=== PATIENT | female | born 1950 | race Caucasian/White ===

== ENCOUNTER 2018-06-13 08:48 | Inpatient (IN) | payer OTHER, MEDICARE ==
[2018-06-13] VITALS (7 sets, daily range): BP systolic 142–172; BP diastolic 70–88
[~2018-06-13] VITALS: Ht 162.5 cm; Wt 67.1 kg
--- NOTE | ~2018-06-13 | EKG ---
[place], [place] ELECTROCARDIOGRAM REPORT NAME: CAROLE BHATIA UNIT #: [id number] ROOM: 401 DOCTOR: ANANDA DRAFT REPORT BIRTHDATE: [birth year] [facility] Test Date: 2018-06-13 Test Time: 08:59:39 Pat Name: CAROLE BHATIA Department: Room: Gender: F Slunk Skin Curer: : 1950 Requested By: LLOYD HARO Order Number: [id number] Reading MD: Richard George MD Measurements Intervals [place] Rate: 70 P: 47 MA: 182 QRS: -26 QRSD: 101 T: 34 QT: 425 QTc: 459 Interpretive Statements Sinus rhythm Inferior infarct, old No previous ECG available for comparison Electronically Signed On 06-13-2018 8:28:28 PDT by Richard George MD CM:EKGRPT:ELECTROCARDIOGRAM REPORT [id number] LLOYD GARCIA DRAFT REPORT LLOYD HARO DO
--- NOTE | ~2018-06-13 | EKG ---
[place], [place] ELECTROCARDIOGRAM REPORT NAME: CAROLE BHATIA UNIT #: [id number] ROOM: [facility] DOCTOR: ANANDA DRAFT REPORT BIRTHDATE: [birth year] [facility] Test Date: 2018-06-13 Test Time: 12:23:28 Pat Name: CAROLE BHATIA Department: Room: Gender: F Specialized Language Instructor: GUSTAVO : 1950 Requested By: LLOYD HARO Order Number: [id number] Reading MD: Richard George MD Measurements Intervals [place] Rate: 64 P: 36 CT: 162 QRS: -22 QRSD: 106 T: 22 QT: 440 QTc: 454 Interpretive Statements Sinus rhythm Borderline left axis deviation Compared to ECG 06/13/2018 08:59:39 No significant change Electronically Signed On 06-13-2018 10:18:54 PDT by Richard George MD CM:EKGRPT:ELECTROCARDIOGRAM REPORT [id number] LLOYD GARCIA DRAFT REPORT LLOYD HARO DO
--- NOTE | ~2018-06-13 | PR ---
[place], [place] PROGRESS NOTE NAME: CAROLE BHATIA [facility] #: [id number] UNIT #: [id number] ROOM: 401 DOCTOR: JAY CABRERA MD BIRTHDATE: [birth year] DOS: 06/14/2018 The patient was seen today at the Cardiology Department for Cardiology followup just prior to her stress test. She is a 67-year-old woman who presented with indigestion and atypical chest pain. Despite several hours of chest pain and nausea, her troponin levels have remained normal and she has shown no acute EKG changes. Overnight, her symptoms have resolved and she feels well today. In the hospital, she has had multiple blood pressure readings that have been high, even though she has not had a diagnosed history of hypertension. PHYSICAL EXAMINATION: VITAL SIGNS: Today, her pulse is 80 and regular, blood pressure is 147/63. She is afebrile. She weighs 67 kg and has a body mass index of 25.4. NECK: Supple. She has no jugular distention. Carotids are full. LUNGS: Respirations are unlabored. Chest is clear. HEART: Has a regular rhythm and S4 gallop, but no S3. ABDOMEN: Soft and normally active. EXTREMITIES: Showed no edema. The patient's symptoms have resolved overnight and she shows no signs of an acute coronary syndrome. IMPRESSION: 1. Atypical chest pain, most likely not cardiac in origin. 2. Dyspepsia. 3. Probable hypertension. PLAN: We will proceed with an exercise myocardial perfusion study today. Further recommendations depend upon the results of the stress test. I thank the hospitalist physicians for asking our advice regarding her care. JAY CABRERA MD CM:PNTRANS [id number] JAY CABRERA MD 06/14/182300 interface
--- NOTE | ~2018-06-13 | EKG ---
[place], [place] ELECTROCARDIOGRAM REPORT NAME: CAROLE BHATIA UNIT #: [id number] ROOM: [facility] DOCTOR: ANANDA DRAFT REPORT BIRTHDATE: [birth year] [facility] Test Date: 2018-06-13 Test Time: 14:34:38 Pat Name: CAROLE BHATIA Department: Room: Gender: F Counter Former: JIMMY : 1950 Requested By: LLOYD HARO Order Number: [id number] Reading MD: Richard George MD Measurements Intervals [place] Rate: 72 P: 41 [place]: 163 QRS: -30 QRSD: 101 T: 11 QT: 434 QTc: 476 Interpretive Statements Sinus rhythm RSR' in V1 or V2, probably normal variant Inferior infarct, old Baseline wander in lead(s) I,II,aVR,aVL Compared to ECG 06/13/2018 12:23:28 Nonspecific T-wave abnormalities in the anterolateral leads are more pronounced Electronically Signed On 06-13-2018 20:41:23 PDT by Richard George MD CM:EKGRPT:ELECTROCARDIOGRAM REPORT [id number] [id number] LLOYD GARCIA DRAFT REPORT LLOYD HARO DO
[2018-06-13] MEDS ORDERED: ROPINIROLE HYDRO2 M2 PO (08:58)
[2018-06-13] MEDS ORDERED: Synthroid,Levo88 MCG PO (08:59)
[2018-06-13] MEDS ORDERED: DULOXETINE HCL60 MG PO (08:59)
[2018-06-13] MEDS ORDERED: PREMARIN0.625 M1 PO (08:59)
[2018-06-13] MEDS ORDERED: TRAMADOL HCL50 MG PO (09:00)
[2018-06-13 09:09] LABS: BASO % 0.6 % (0.0-1.0); EOS # 0.3 10*3/uL (0.0-0.4); EOS % 3.8 % (1.0-4.0); HEMATOCRIT 42.5 % (37.0-47.0); HEMOGLOBIN 14.3 g/dl (12.0-16.0); LYMPH # 1.5 10*3/uL (1.3-4.4); LYMPH % 21.5 % (27.0-41.0); MEAN CORPUSCULAR HGB 31.6 pg (27.0-31.0); MEAN CORPUSCULAR HGB CONC 33.6 g/dl (33.0-37.0); MEAN PLATELET VOLUME 8.4 fl (9.6-12.3); MONO # 0.6 10*3/uL (0.1-1.0); MONO % 8.2 % (3.0-9.0); NEUT # 4.7 10*3/uL (2.3-7.9); NEUT % 65.6 % (47.0-73.0); PLATELET COUNT AUTOMATED 159 10*3/uL (130-400); RED BLOOD COUNT 4.52 10*6/uL (4.10-5.10); RED CELL DISTRI WIDTH 12.8 % (0-14.5); WHITE BLOOD COUNT 7.2 10*3/uL (4.8-10.8)
[2018-06-13 09:19] LABS: ACT PARTIAL THROMBO TIME 25.1 SECONDS (20.8-31.5); INTERNATIONAL NORM RATIO 0.9 (2.0-3.5)
[2018-06-13 09:25] LABS: ALBUMIN 3.5 gm/dl (3.1-4.5); ALKALINE PHOSPHATASE 81 U/L (45-117); BUN 20 mg/dl (7-24); CHLORIDE 108 mmol/L (98-107); CREATININE 0.85 mg/dL (0.55-1.02); LIPASE 246 U/L (73-393); POTASSIUM 3.9 mmol/L (3.5-5.1); SGOT/AST 22 IU/L (3-35); SGPT/ALT 24 U/L (12-78); SODIUM 142 mmol/L (136-145); TOTAL PROTEIN 6.6 gm/dL (6.4-8.2)
[2018-06-13 09:26] LABS: TROPONIN I < 0.015 ng/ml (<0.045)
[2018-06-14] VITALS: BP 152/75
[2018-06-14 06:15] LABS: BASO % 0.5 % (0.0-1.0); EOS # 0.2 10*3/uL (0.0-0.4); EOS % 3.4 % (1.0-4.0); HEMATOCRIT 43.8 % (37.0-47.0); HEMOGLOBIN 14.4 g/dl (12.0-16.0); LYMPH # 1.3 10*3/uL (1.3-4.4); MEAN CELL VOLUME 95.2 fl (81.0-99.0); MEAN CORPUSCULAR HGB 31.3 pg (27.0-31.0); MEAN CORPUSCULAR HGB CONC 32.9 g/dl (33.0-37.0); MEAN PLATELET VOLUME 8.5 fl (9.6-12.3); MONO # 0.6 10*3/uL (0.1-1.0); MONO % 10.1 % (3.0-9.0); NEUT # 3.5 10*3/uL (2.3-7.9); NEUT % 62.8 % (47.0-73.0); PLATELET COUNT AUTOMATED 156 10*3/uL (130-400); WHITE BLOOD COUNT 5.6 10*3/uL (4.8-10.8)
[2018-06-14 06:32] LABS: ALBUMIN 3.3 gm/dl (3.1-4.5); BUN 15 mg/dl (7-24); CHLORIDE 109 mmol/L (98-107); POTASSIUM 3.9 mmol/L (3.5-5.1); SODIUM 143 mmol/L (136-145)
[2018-06-14 06:42] LABS: ALKALINE PHOSPHATASE 75 U/L (45-117); CHOLESTEROL 206 mg/dL (<200); CREATININE 0.87 mg/dL (0.55-1.02); FREE T4 0.83 ng/dl (0.76-1.46); HDL CHOLESTEROL 61 mg/dl (40-60); LDL CHOLESTEROL 118 mg/dL (9-159); PHOSPHOROUS 3.3 mg/dL (2.5-4.9); SGOT/AST 18 IU/L (3-35); SGPT/ALT 22 U/L (12-78); TOTAL PROTEIN 6.5 gm/dL (6.4-8.2); TRIGLYCERIDES 136 mg/dl (<150); VLDL CHOLESTEROL 27 mg/dL (6-40)
[2018-06-14 07:42] LABS: VITAMIN D, 25-HYDROXY 23.1 ng/mL (30-100)
[2018-06-14 08:00] VITALS: BP 154/76
[2018-06-14 12:00] VITALS: BP 136/79; BP 147/63
[2018-06-14 16:00] VITALS: BP 158/70
[2018-06-14 20:00] VITALS: BP 134/81
[2018-06-15] VITALS: BP 148/78
[2018-06-15 08:00] VITALS: BP 142/66
== END 2018-06-15 11:46 | disposition home or self-care (01) | DRG 282 ==
LOC: ED 08:48 → EDHOLD 09:41 → 4E 09:41
PROVIDERS: Emergency Medicine; Registered Nurse
PROC: 4A02XM4 Measurement of Cardiac Total Activity, External Approach (ICD-10-PCS; principal; 2018-06-14)
DX: I21.9 Acute myocardial infarction, unspecified (principal); E03.9 Hypothyroidism, unspecified; F41.9 Anxiety disorder, unspecified; R79.89 Other specified abnormal findings of blood chemistry; K21.9 Gastro-esophageal reflux disease without esophagitis; M94.0 Chondrocostal junction syndrome [Tietze]; M79.7 Fibromyalgia; I34.1 Nonrheumatic mitral (valve) prolapse; G25.81 Restless legs syndrome; Z90.710 Acquired absence of both cervix and uterus; Z82.49 Family history of ischemic heart disease and other diseases of the circulatory system; Z80.3 Family history of malignant neoplasm of breast; Z80.0 Family history of malignant neoplasm of digestive organs; Z80.8 Family history of malignant neoplasm of other organs or systems; Z83.3 Family history of diabetes mellitus

== ENCOUNTER 2019-04-11 10:22 | Emergency (ER) | payer MEDICARE, OTHER ==
[~2019-04-11] VITALS: Ht 160 cm; Wt 66.7 kg
[~2019-04-11 10:22] MED LIST: DULOXETINE HCL60 MG PO; PREMARIN0.625 M1 PO; ROPINIROLE HYDRO2 M2 PO; Synthroid,Levo88 MCG PO; TRAMADOL HCL50 MG PO
[2019-04-11] MEDS ORDERED: LIDEX 0.05% CRE15 GM T (10:37)
[2019-04-11] MEDS ORDERED: PREDNISONE20 M1 PO (10:37)
== END 2019-04-11 10:43 | disposition home or self-care (01) ==
LOC: ED 10:22
DX: L25.9 Unspecified contact dermatitis, unspecified cause (principal); E03.9 Hypothyroidism, unspecified; Z79.899 Other long term (current) drug therapy; Z90.710 Acquired absence of both cervix and uterus

== ENCOUNTER 2019-09-25 00:23 | Inpatient (IN) | payer MEDICARE, OTHER ==
[2019-09-25] VITALS (8 sets, daily range): BP systolic 114–128; BP diastolic 49–90
[~2019-09-25] VITALS: Ht 162.5 cm; Wt 61.0 kg
--- NOTE | ~2019-09-25 | EKG ---
[place], [place] ELECTROCARDIOGRAM REPORT NAME: CAROLE BHATIA UNIT #: [id number] ROOM: 415 DOCTOR: ANANDA DRAFT REPORT BIRTHDATE: [birth year] [facility] Test Date: 2019-09-25 Test Time: 06:38:53 Pat Name: CAROLE BHATIA Department: Room: 415 Gender: F Manager Of Revenue: : 1950 Requested By: GUANACO ERAZO Order Number: [id number] Reading MD: Roberto Carlos Golden Measurements Intervals [place] Rate: 78 P: 68 [place]: 186 QRS: -35 QRSD: 104 T: 96 QT: 419 QTc: 478 Interpretive Statements Sinus rhythm Left axis deviation Borderline T abnormalities, lateral leads Compared to ECG 06/13/2018 14:34:38 Left-axis deviation now present T-wave abnormality now present Myocardial infarct finding no longer present Electronically Signed On 09-26-2019 9:37:44 PST by Roberto Carlos Golden CM:EKGRPT:ELECTROCARDIOGRAM REPORT 7 GUANACO GARCIA DRAFT REPORT GUANACO ERAZO DO
--- NOTE | ~2019-09-25 | EKG ---
[place], [place] ELECTROCARDIOGRAM REPORT NAME: CAROLE BHATIA UNIT #: [id number] ROOM: 415 DOCTOR: ANANDA DRAFT REPORT BIRTHDATE: [birth year] [facility] Test Date: 2019-09-25 Test Time: 01:02:17 Pat Name: CAROLE BHATIA Department: Room: 415 Gender: F Government Affairs Fellow: : 1950 Requested By: GUANACO ERAZO Order Number: [id number] Reading MD: Roberto Carlos Golden Measurements Intervals [place] Rate: 77 P: 69 [place]: 186 QRS: -36 QRSD: 99 T: 100 QT: 404 QTc: 458 Interpretive Statements Sinus rhythm Left axis deviation Borderline abnrm T, anterolateral leads Baseline wander in lead(s) II,III,aVF Compared to ECG 06/13/2018 14:34:38 Left-axis deviation now present Myocardial infarct finding no longer present Electronically Signed On 09-26-2019 9:36:31 PST by Roberto Carlos Golden CM:EKGRPT:ELECTROCARDIOGRAM REPORT [id number] [id number] GUANACO GARCIA DRAFT REPORT GUANACO ERAZO DO
--- NOTE | ~2019-09-25 | PR ---
[place], [place] PROGRESS NOTE [id number] UN[facility] #: [id number] ROOM: 415 DOCTOR: NICOLE WOODY,GIULIANOLUZ MARINA BIRTHDATE: [birth year] DOS: 09/27/2019 CARDIOLOGY FOLLOWUP VISIT NOTE REASON FOR VISIT: Cardiomyopathy, valvular heart disease and congestive heart failure. HISTORY OF PRESENT ILLNESS: The patient is feeling better. Denies any chest pain, shortness of breath. No PND, no orthopnea, no palpitations or dizziness. REVIEW OF SYSTEMS: Review of the 8 systems negative except as mentioned above. PHYSICAL EXAMINATION: VITAL SIGNS: Blood pressure 126/72, pulse 88, respiratory rate 16, weight 61 kilos, BMI 23. RHYTHM STRIPS: The patient in sinus rhythm. GENERAL: Alert, comfortable, in no acute distress. HEENT: Pupils are round and equal, no jaundice. NECK: Supple, no distended neck veins, no carotid bruit. CHEST: Symmetrical, nontender. LUNGS: Clear to auscultation bilaterally. HEART: Regular rhythm, no S3, no palpable thrills. ABDOMEN: Benign. Bowel sounds normal. EXTREMITIES: Showed trace edema. Distal pulses palpable. SKIN: Warm and dry. No cyanosis, no clubbing. RECTAL: Deferred. GENITOURINARY: Deferred. NEUROLOGIC: Alert with no focal neurologic deficit. MEDICATIONS AND LABS: Reviewed. IMPRESSION: 1. Acute systolic heart failure, resolved. 2. Dilated cardiomyopathy with severe left ventricular dysfunction, EF 20-25%. 3. Valvular heart disease. RECOMMENDATIONS: 1. Continue beta-blockers and lisinopril. 2. Add low-dose spironolactone 25 mg once daily. 3. Monitor blood pressures as well as her potassium levels. 4. The patient can be discharged home today from the cardiac standpoint. 5. The patient is agreeable for LifeVest, which will be fitted today prior to discharge. 6. The patient can be resumed to her work from Tuesday. 7. [facility] in 2 weeks. 8. Medication titration and repeat echo for LV function assessment in 3-6 months was discussed with her and all questions were answered. 9. No family at bedside at the time of my examination. 10. She has nonischemic stress test last year in 05/2019. No ischemic testing at this time until we reassess her LV function after optimal medical therapy. [place], [place] PROGRESS NOTE NAME: CAROLE BHATIA UNIT #: [id number] ROOM: [facility] DOCTOR: GABRIELE RIVERA MD BIRTHDATE: [birth year] GABRIELE RIVERA MD CM:PNTRANS 1034 [id number] GABRIELE RIVERA MD 09/27/19 1449 interface
--- NOTE | ~2019-09-25 | PR ---
[place], [place] PROGRESS NOTE NAME: CAROLE BHATIA [facility] #: [id number] UNIT #: [id number] ROOM: 415 DOCTOR: NICOLE WOODY,GABRIELE BIRTHDATE: [birth year] DOS: 09/26/2019 REASON FOR VISIT: CHF and atypical chest pain and shortness of breath. SUBJECTIVE: The patient is feeling better. No PND, no orthopnea. No nausea or vomiting. No fever, no chills. No palpitation or dizziness. The patient had a 2D echo today, which was reviewed. REVIEW OF SYSTEMS: Review of 8 systems negative except as mentioned above. PHYSICAL EXAMINATION: VITAL SIGNS: Blood pressure 119/60, pulse 82, respiratory rate 18, weight 61.8 kilos. RHYTHM STRIPS: The patient in sinus rhythm. GENERAL: Alert, comfortable, in no acute distress. HEENT: Pupils are round and equal, no jaundice. NECK: Supple, no distended neck veins, no carotid bruit. CHEST: Nontender. LUNGS: Clear to auscultation bilaterally. HEART: Regular rhythm, no S3 and grade 1-2/6 systolic murmur. ABDOMEN: Bowel sounds normal. EXTREMITIES: Showed trace edema. Distal pulses palpable. SKIN: Warm and dry. No cyanosis, no clubbing. RECTAL: Deferred. GENITOURINARY: Deferred. NEUROLOGIC: Alert with no focal neurologic deficit. MEDICATIONS: Reviewed. LABORATORY DATA: Reviewed. A 2D echo showed severe LV dysfunction with mitral and tricuspid regurgitation. IMPRESSION: 1. Jakok-yp-jnasnps systolic heart failure, ejection fraction about 20%-25% by echo. 2. Dilated cardiomyopathy, new, ejection fraction 20%-25% by echo, 09/26/2019. 3. Atypical chest pain, myocardial infarction ruled out. 4. Moderate mitral regurgitation. 5. Mild tricuspid regurgitation. 6. Hypothyroidism. RECOMMENDATIONS: 1. Start low-dose beta blockers, metoprolol succinate 25 mg once daily and also lisinopril 2.5 mg daily and monitor heart rate and blood pressures. 2. His blood pressure is stable. I would add low-dose spironolactone 25 mg later on. 3. Change to p.o. Lasix 20 mg once daily from tomorrow. 4. Echo findings were discussed with the patient and all questions were answered. [place], [place] PROGRESS NOTE [facility]: [id number] UNIT #: [id number] ROOM: 415 DOCTOR: NICOLE WOODY,GABRIELE BIRTHDATE: [birth year] 5. Risk of sudden cardiac due to her severe LV dysfunction and the benefit of wearing external wearable defibrillator, LifeVest, was discussed and all questions answered. The patient is interested in wearing a LifeVest upon discharge. PLAN: 1. To up-titrate her medications, and when she is on a maximal tolerable medical therapy, then we have to wait minimal 3-6 months and repeat 2D echo to assess her LV function and further recommendations based on her LV function at that time. 2. Above recommendations and findings are discussed with the patient and all questions answered. 3. Tentative discharge tomorrow if she is feeling better. 4. She can return to her work from Tuesday and she is aware that she may get tired and short of breath with exertion due to her severe LV dysfunction and valvular heart disease. 5. No family at bedside at the time of examination. 6. The patient is agreeable. The patient would like to follow with [facility] in the future. GABRIELE RIVERA MD CM:DORA 183 GABRIELE RIVERA MD 09/27/19 0327 interface
--- NOTE | ~2019-09-25 | EKG ---
[place], [place] ELECTROCARDIOGRAM REPORT NAME: CAROLE BHATIA UNIT #: [id number] ROOM: 415 DOCTOR: ANANDA DRAFT REPORT BIRTHDATE: [birth year] [facility] Test Date: 2019-09-25 Test Time: 04:05:04 Pat Name: CAROLE BHATIA Department: Room: 415 Gender: F Reel Hooker: : 1950 Requested By: GUANACO ERAZO Order Number: [id number] Reading MD: Roberto Carlos Golden Measurements Intervals [place] Rate: 84 P: 61 MA: 186 QRS: -34 QRSD: 100 T: 114 QT: 406 QTc: 480 Interpretive Statements Sinus rhythm Probable left atrial enlargement Left axis deviation Anterior infarct, old Nonspecific T abnormalities, lateral leads Compared to ECG 06/13/2018 14:34:38 Left-axis deviation now present T-wave abnormality now present Myocardial infarct finding still present Electronically Signed On 09-26-2019 9:37:31 PST by Roberto Carlos Golden CM:EKGRPT:ELECTROCARDIOGRAM REPORT [id number] 0937 GUANACO GARCIA DRAFT REPORT GUANACO ERAZO DO
--- NOTE | ~2019-09-25 | CON ---
[place], [place] REPORT OF CONSULTATION NAME: CAROLE BHATIA UNIT #: [id number] ROOM: 415 DOCTOR: NICOLE WOODY,GABRIELE BIRTHDATE: [birth year] DOS: 09/25/2019 REASON FOR CONSULTATION: Chest pain, shortness of breath. HISTORY OF PRESENT ILLNESS: The patient is a 68-year-old patient with no previous cardiovascular history except for some mitral valve prolapse, presented to the Emergency Room for shortness of breath. She is also having intermittent chest pain for the past couple of months, both legs at rest in addition, but her main complaint is shortness of breath, which makes her chest, feels like a tight during her shortness of breath. No PND, no orthopnea. She was referred to see Dr. Orozco, pipe bowls paint trimmer; however, she was scheduled to see Dr. Orozco in few weeks. Cardiology consulted for her shortness of breath. Her chest pain appears to be atypical, both at rest and exertion. No associated symptoms, but she feels like as a tightness feeling in the midsternal area, which comes after shortness of breath. Her chest tightness when her breathing gets better. No palpitation or dizziness. No fever and chills. The patient did have some cough, mostly dry, especially in the morning time. No hemoptysis. No nausea, vomiting. No bladder or bowel symptoms, no genitourinary symptoms. She has a nonischemic stress test in May of 2018 and a 2D echo in May of 2018 showed normal LV function. REVIEW OF SYSTEMS: Review of 10 systems negative except as mentioned above. PAST MEDICAL HISTORY: 1. Mitral valve prolapse. 2. Hypothyroidism. 3. Anxiety. 4. Restless leg syndrome. PAST SURGICAL HISTORY: History of bladder repair, history of breast biopsy, history of hysterectomy. SOCIAL HISTORY: Does not smoke, does not drink, does not use illicit drugs. FAMILY HISTORY: Father at age 58 from heart attack. Mother had multiple cancers as well as diabetes, hypertension, at the age of 93. ALLERGIES: No known drug allergies. HOME MEDICATIONS: Reviewed. PHYSICAL EXAMINATION: VITAL SIGNS: Blood pressure 120/70, pulse 82, respirations 14, weight 65.3 kilos. GENERAL: Alert, comfortable, in no acute distress. HEENT: Pupils are round and equal. No jaundice. Tongue was moist. Pharynx clear. NECK: Supple, no distended neck veins, no carotid bruit. CHEST: Symmetrical, nontender. [place], [place] REPORT OF CONSULTATION NAME: CAROLE BHATIA UNIT #: [id number] ROOM: [facility] DOCTOR: NICOLE WOODY,GABRIELE BIRTHDATE: [birth year] LUNGS: A few scattered rhonchi, but good air entry bilaterally. HEART: Regular rhythm, no S3, grade 1/6 systolic murmur. ABDOMEN: Nontender. Bowel sounds normal. EXTREMITIES: Showed trace to 1+ edema. Distal pulses palpable. SKIN: Warm and dry. No cyanosis, no clubbing. RECTAL: Deferred. GENITOURINARY: Deferred. NEUROLOGIC: Alert with no focal neurologic deficit. PSYCHIATRIC: The patient is alert with good mood and affect. REVIEW OF THE DIAGNOSTIC TESTS: EKG, CBC, chemistry reviewed. Cardiac troponins are unremarkable. ProBNP is 1421. Chest x-ray showed left lower lobe atelectasis. Echo from May 2018 reviewed. Stress test in May 2018 reviewed. IMPRESSION: 1. Acute on chronic heart failure with preserved ejection fraction. 2. History of paroxysmal supraventricular tachycardia on the treadmill in May 2018, no recurrence. 3. Hypothyroidism, on replacement therapy. 4. Anxiety. 5. Atypical chest pain, myocardial infarction ruled out. RECOMMENDATIONS: 1. Continue her Lasix and monitor daily weights, blood pressures and renal function. 2. 2D echo was ordered and pending. 3. The patient is feeling better, she can be discharged home tomorrow and she would like to follow up with Dr. Orozco per her scheduled appointment in a couple of weeks. Above recommendation discussed with the patient and her family who is at bedside and all questions were answered. GABRIELE RIVERA MD CM:CONSTR:REPORT OF CONSULTATION 2135 09/26/19 2008 interface
[~2019-09-25 00:23] MED LIST changes: +LIDEX 0.05% CRE15 GM T; +PREDNISONE20 M1 PO
[2019-09-25 01:32] LABS: BASO % 0.7 % (0.0-1.0); EOS # 0.3 10*3/uL (0.0-0.4); HEMATOCRIT 37.6 % (37.0-47.0); HEMOGLOBIN 12.3 g/dl (12.0-16.0); LYMPH # 1.4 10*3/uL (1.3-4.4); LYMPH % 25.6 % (27.0-41.0); MEAN CELL VOLUME 98.4 fl (81.0-99.0); MEAN CORPUSCULAR HGB 32.2 pg (27.0-31.0); MEAN CORPUSCULAR HGB CONC 32.7 g/dl (33.0-37.0); MEAN PLATELET VOLUME 9.3 fl (9.6-12.3); MONO # 0.7 10*3/uL (0.1-1.0); MONO % 11.9 % (3.0-9.0); NEUT # 3.2 10*3/uL (2.3-7.9); NEUT % 56.6 % (47.0-73.0); PLATELET COUNT AUTOMATED 160 10*3/uL (130-400); RED BLOOD COUNT 3.82 10*6/uL (4.10-5.10); RED CELL DISTRI WIDTH 13.1 % (0-14.5); WHITE BLOOD COUNT 5.6 10*3/uL (4.8-10.8)
[2019-09-25 01:46] LABS: ACT PARTIAL THROMBO TIME 23.9 SECONDS (20.0-32.1); INTERNATIONAL NORM RATIO 0.9 (2.0-3.5)
[2019-09-25 01:50] LABS: ALBUMIN 2.7 gm/dl (3.1-4.5); ALKALINE PHOSPHATASE 91 U/L (45-117); BUN 27 mg/dl (7-24); CHLORIDE 111 mmol/L (98-107); POTASSIUM 4.8 mmol/L (3.5-5.1); SGOT/AST 40 IU/L (3-35); SGPT/ALT 51 U/L (12-78); SODIUM 142 mmol/L (136-145); TOTAL PROTEIN 5.4 gm/dL (6.4-8.2)
[2019-09-25 01:59] LABS: TROPONIN I < 0.015 ng/ml (<0.045)
--- NOTE | 2019-09-25 09:03 | NUR ---
REQUESTING MEDS FOR NAUSEA AND HEADACHE.
--- NOTE | 2019-09-25 09:11 | NUR ---
PT HAS TAKEN OFF HER GOWN AND DRESSED INTO STREET CLOTHES. WISHES TO REMAIN THAT WAY.
--- NOTE | 2019-09-25 09:34 | NUR ---
PT SLEEPING IN BED, APPEARS COMFORTABLE.
--- NOTE | 2019-09-25 10:00 | NUR ---
[facility] 68[facility] under the services of THIEN Mercedes DO with a diagnosis of CHF. Chief complaint is CHEST TIGHTNESS, SOB. Patient arrived via stretcher from ER. Monitor applied. Initial assessment completed. Vital signs taken and recorded. THIEN MERCEDES DO notified of admission to the unit. Orders received. See assessment for past medical history, medications and allergies. Patient and/or family oriented to unit. [facility] visitation policy reviewed. Clothing/patient valuable form completed. AMANDA VIGIL
--- NOTE | 2019-09-25 10:13 | NUR ---
PT RESTING IN BED. TOOK OFF NITRO PATCH OFF SELF BECAUSE OF HEADACHE. MEDICATED WITH TYLENOL.
--- NOTE | 2019-09-25 10:26 | NUR ---
PT CPOMPLAING OF LEG CRAMPING, IS AMBULATING AROUND ROOM OFF OF AS400 ANALYST. SPOUSE PRESENT. INSTRUCTED TO CALL NURSE FOR ANY CHEST PAIN OR SOB.
--- NOTE | 2019-09-25 11:01 | NUR ---
PATIENT MED REC UP TO DATE PER PATIENT.
--- NOTE | 2019-09-25 13:25 | NUR ---
CALLED DR TENORIO'S OFFICE AND NOTIFIED OF CONSULT.
--- NOTE | 2019-09-25 23:16 | NUR ---
PT LAYING IN BED RESTING. NO COMPLAINTS AT THIS TIME. CALL LIGHT WITHIN REACH.
[2019-09-26] VITALS: BP 119/60
--- NOTE | 2019-09-26 01:18 | NUR ---
24 HR chart check completed.
[2019-09-26 06:09] LABS: BASO % 0.5 % (0.0-1.0); EOS # 0.3 10*3/uL (0.0-0.4); EOS % 4.5 % (1.0-4.0); HEMATOCRIT 43.6 % (37.0-47.0); HEMOGLOBIN 14.4 g/dl (12.0-16.0); LYMPH # 1.6 10*3/uL (1.3-4.4); LYMPH % 23.8 % (27.0-41.0); MEAN CELL VOLUME 95.6 fl (81.0-99.0); MEAN CORPUSCULAR HGB 31.6 pg (27.0-31.0); MEAN PLATELET VOLUME 9.5 fl (9.6-12.3); MONO # 0.7 10*3/uL (0.1-1.0); MONO % 11.4 % (3.0-9.0); NEUT # 3.9 10*3/uL (2.3-7.9); NEUT % 59.5 % (47.0-73.0); PLATELET COUNT AUTOMATED 182 10*3/uL (130-400); RED BLOOD COUNT 4.56 10*6/uL (4.10-5.10); RED CELL DISTRI WIDTH 12.9 % (0-14.5); WHITE BLOOD COUNT 6.5 10*3/uL (4.8-10.8)
[2019-09-26 06:24] LABS: BUN 30 mg/dl (7-24); CHLORIDE 104 mmol/L (98-107); CHOLESTEROL 182 mg/dL (<200); CREATININE 0.95 mg/dL (0.55-1.02); PHOSPHOROUS 4.1 mg/dL (2.5-4.9); SGOT/AST 22 IU/L (3-35); SGPT/ALT 49 U/L (12-78); TOTAL PROTEIN 6.1 gm/dL (6.4-8.2); TRIGLYCERIDES 159 mg/dl (<150); VLDL CHOLESTEROL 32 mg/dL (6-40)
[2019-09-26 06:26] LABS: ALKALINE PHOSPHATASE 97 U/L (45-117); HDL CHOLESTEROL 54 mg/dl (40-60); LDL CHOLESTEROL 96 mg/dL (9-159)
[2019-09-26 06:34] LABS: SODIUM 141 mmol/L (136-145)
[2019-09-26 06:37] LABS: POTASSIUM 3.7 mmol/L (3.5-5.1)
--- NOTE | 2019-09-26 09:30 | NUR ---
Survey Technologist in to talk to patient. Patient states lives at home with her . There are 11 steps in the home. Physician: Tuyet Sims Pharmacy: [facility] Home health services: none Patient's level of ADLs: INDEPENDENT Patient has working utilities: yes DME: none Follow-up physician's appointment after d/c: will be made by the hospitalist nurse director upon discharge Does patient want to access PORTAL?: no Discharge plan discussed with patient who is sitting in her bedside chair and her who is sitting beside her. She lives at home with her . She is independent in her ADLs and ambulation. She states she has an appt with Dr. Orozco, engine room helper, next week. Discussed home health care services and she denies any home needs at this time. When medically stable she will be discharged to home. Her will provide transportation on discharge. CONSTANTIN PARADA
[2019-09-26 12:00] VITALS: BP 107/60
[2019-09-26 16:00] VITALS: BP 109/49
[2019-09-26 20:00] VITALS: BP 122/73
--- NOTE | 2019-09-26 20:10 | NUR ---
1939 SITTING UP ON THE SIDE OF THE BED TALKING WITH VISITORS. HEP LOCK INTACT. NO C/O'S PAIN OR DISCOMFORT VOICED. NO DISTRESS NOTED. RESPIRATIONS EASY.
--- NOTE | 2019-09-26 22:07 | NUR ---
SITTING UP ON THE SIDE OF THE BED ON HER COMPUTER. NO DISTRESS NOTED. CONDITION GUARDED.
[2019-09-27] VITALS: BP 126/72
--- NOTE | 2019-09-27 00:35 | NUR ---
24 HR chart check completed.
--- NOTE | 2019-09-27 06:00 | NUR ---
WEIGHT WAS NOT POSTED YESTERDAY BUT ON BED IT SAID 139.
[2019-09-27 06:23] LABS: BASO # 0.1 10*3/uL (0.0-0.1); BASO % 0.8 % (0.0-1.0); EOS # 0.3 10*3/uL (0.0-0.4); EOS % 3.8 % (1.0-4.0); HEMATOCRIT 43.4 % (37.0-47.0); HEMOGLOBIN 14.4 g/dl (12.0-16.0); LYMPH # 1.8 10*3/uL (1.3-4.4); LYMPH % 27.1 % (27.0-41.0); MEAN CELL VOLUME 95.2 fl (81.0-99.0); MEAN CORPUSCULAR HGB 31.6 pg (27.0-31.0); MEAN CORPUSCULAR HGB CONC 33.2 g/dl (33.0-37.0); MEAN PLATELET VOLUME 9.4 fl (9.6-12.3); MONO # 0.7 10*3/uL (0.1-1.0); NEUT # 3.8 10*3/uL (2.3-7.9); PLATELET COUNT AUTOMATED 198 10*3/uL (130-400); RED BLOOD COUNT 4.56 10*6/uL (4.10-5.10); RED CELL DISTRI WIDTH 12.7 % (0-14.5); WHITE BLOOD COUNT 6.6 10*3/uL (4.8-10.8)
[2019-09-27 06:26] LABS: ALBUMIN 3.1 gm/dl (3.1-4.5); ALKALINE PHOSPHATASE 92 U/L (45-117); BUN 29 mg/dl (7-24); CHLORIDE 103 mmol/L (98-107); CREATININE 0.96 mg/dL (0.55-1.02); POTASSIUM 4.1 mmol/L (3.5-5.1); SGOT/AST 20 IU/L (3-35); SGPT/ALT 43 U/L (12-78); SODIUM 138 mmol/L (136-145); TOTAL PROTEIN 6.3 gm/dL (6.4-8.2)
[2019-09-27 08:00] VITALS: BP 124/70
--- NOTE | 2019-09-27 10:00 | NUR ---
Tobacco Dipper in to see patient. She is sitting up in her bed without distress noted. No new needs or request at this time. She denies any home needs. When medically stable she will be discharged to home. She states she is awaiting her life vest to be discharged.
[2019-09-27 12:00] VITALS: BP 108/53
[2019-09-27] MEDS ORDERED: FUROSEMIDE20 M1 PO (14:12)
[2019-09-27] MEDS ORDERED: METOPROLOL SUCC25 M2 PO (14:12)
[2019-09-27] MEDS ORDERED: ALDACTONE25 MG PO (14:12)
[2019-09-27] MEDS ORDERED: LISINOPRIL2.5 MG PO (14:12)
--- NOTE | 2019-09-27 15:26 | NUR ---
PT DISCHARGED AT THIS TIME. IV TAKEN OUT, PRESSURE DRESSING APPLIED. METHODS ANALYST DATA PROCESSING REMOVED.VERBALIZED UNDERSTANDING OF DISCHARGE INSTRUCTIONS. ZOLL CAME AND PLACED LIFE VEST PRIOR TO DISCHARGE.
== END 2019-09-27 15:26 | disposition home or self-care (01) | DRG 291 ==
LOC: ED 00:23 → 4E 03:24 → EDHOLD 03:24 → 4E 12:56
PROVIDERS: Emergency Medicine; Internal Medicine; Student in an Organized Health Care Education/Training Program; ADMIT Family Medicine
DX: I50.43 Acute on chronic combined systolic (congestive) and diastolic (congestive) heart failure (principal); E43 Unspecified severe protein-calorie malnutrition; J98.11 Atelectasis; I42.0 Dilated cardiomyopathy; F41.9 Anxiety disorder, unspecified; E03.9 Hypothyroidism, unspecified; G25.81 Restless legs syndrome; E78.5 Hyperlipidemia, unspecified; E87.8 Other disorders of electrolyte and fluid balance, not elsewhere classified; R74.0 Nonspecific elevation of levels of transaminase and lactic acid dehydrogenase [LDH]; E55.9 Vitamin D deficiency, unspecified; I08.1 Rheumatic disorders of both mitral and tricuspid valves; I25.2 Old myocardial infarction; Z79.899 Other long term (current) drug therapy; Z90.710 Acquired absence of both cervix and uterus; Z82.49 Family history of ischemic heart disease and other diseases of the circulatory system; Z83.3 Family history of diabetes mellitus; Z80.3 Family history of malignant neoplasm of breast; Z80.0 Family history of malignant neoplasm of digestive organs; Z80.8 Family history of malignant neoplasm of other organs or systems; Z68.23 Body mass index [BMI] 23.0-23.9, adult

== ENCOUNTER → 2020-01-23 | Outpatient (CLI) | payer MEDICARE, OTHER ==
[~2020-01-23] MED LIST changes: +ALDACTONE25 MG PO; +FUROSEMIDE20 M1 PO; +LISINOPRIL2.5 MG PO; +METOPROLOL SUCC25 M2 PO
== END | disposition home or self-care (01) ==
LOC: CARD 08:30
DX: I34.0 Nonrheumatic mitral (valve) insufficiency (principal); I42.0 Dilated cardiomyopathy

== ENCOUNTER → 2020-02-01 | Outpatient (CLI) | payer MEDICARE, OTHER ==
[2020-02-01 15:14] LABS: BASO % 0.7 % (0.0-1.0); BILIRUBIN NEGATIVE (NEGATIVE); BLOOD NEGATIVE (NEGATIVE); CLARITY SL CLOUDY (CLEAR); COLOR YELLOW (YELLOW); EOS # 0.3 10*3/uL (0.0-0.4); EOS % 4.6 % (1.0-4.0); GLUCOSE NEGATIVE (NEGATIVE); HEMATOCRIT 40.6 % (37.0-47.0); HEMOGLOBIN 13.3 g/dl (12.0-16.0); KETONE NEGATIVE (NEGATIVE); LEUKO ESTERASE NEGATIVE (NEGATIVE); LYMPH # 1.3 10*3/uL (1.3-4.4); LYMPH % 24.1 % (27.0-41.0); MEAN CELL VOLUME 98.3 fl (81.0-99.0); MEAN CORPUSCULAR HGB 32.2 pg (27.0-31.0); MEAN CORPUSCULAR HGB CONC 32.8 g/dl (33.0-37.0); MEAN PLATELET VOLUME 8.4 fl (9.6-12.3); MONO # 0.5 10*3/uL (0.1-1.0); MONO % 8.8 % (3.0-9.0); NEUT # 3.4 10*3/uL (2.3-7.9); NEUT % 61.6 % (47.0-73.0); NITRITE NEGATIVE (NEGATIVE); PH 7.5 (5.0-9.0); PLATELET COUNT AUTOMATED 183 10*3/uL (130-400); RED BLOOD COUNT 4.13 10*6/uL (4.10-5.10); RED CELL DISTRI WIDTH 12.8 % (0-14.5); UROBILINOGEN 0.2 E.U./dl (0.2-1.0); WHITE BLOOD COUNT 5.5 10*3/uL (4.8-10.8)
[2020-02-01 15:22] LABS: BACTERIA 1+; RBC 0-2 rbc/hpf (0-2)
[2020-02-01 15:25] LABS: BUN 19 mg/dl (7-24); CHLORIDE 106 mmol/L (98-107); POTASSIUM 4.3 mmol/L (3.5-5.1); SODIUM 140 mmol/L (136-145)
== END | disposition home or self-care (01) ==
LOC: LAB 14:52
PROVIDERS: Internal Medicine Cardiovascular Disease
DX: Z01.818 Encounter for other preprocedural examination (principal); I42.8 Other cardiomyopathies

== ENCOUNTER 2020-04-23 03:00 | Inpatient (IN) | payer MEDICARE, OTHER ==
[~2020-04-23] VITALS: Ht 161.2 cm; Wt 62.4 kg
[2020-04-23] VITALS (9 sets, daily range): BP systolic 94–110; BP diastolic 52–71
[2020-04-23 03:21] LABS: BASO % 0.5 % (0.0-1.0); EOS # 0.3 10*3/uL (0.0-0.4); EOS % 3.1 % (1.0-4.0); HEMATOCRIT 42.5 % (37.0-47.0); LYMPH # 2.5 10*3/uL (1.3-4.4); MEAN CELL VOLUME 99.1 fl (81.0-99.0); MEAN CORPUSCULAR HGB 32.6 pg (27.0-31.0); MEAN CORPUSCULAR HGB CONC 32.9 g/dl (33.0-37.0); MEAN PLATELET VOLUME 8.9 fl (9.6-12.3); MONO # 0.7 10*3/uL (0.1-1.0); MONO % 8.5 % (3.0-9.0); NEUT # 5.1 10*3/uL (2.3-7.9); NEUT % 58.6 % (47.0-73.0); PLATELET COUNT AUTOMATED 189 10*3/uL (130-400); RED BLOOD COUNT 4.29 10*6/uL (4.10-5.10); RED CELL DISTRI WIDTH 13.2 % (0-14.5); WHITE BLOOD COUNT 8.7 10*3/uL (4.8-10.8)
[2020-04-23 03:31] LABS: ACT PARTIAL THROMBO TIME 26.2 SECONDS (20.0-32.1); INTERNATIONAL NORM RATIO 0.9 (2.0-3.5)
[2020-04-23 03:39] LABS: ALBUMIN 2.9 gm/dl (3.1-4.5); ALKALINE PHOSPHATASE 170 U/L (45-117); BUN 35 mg/dl (7-24); CHLORIDE 104 mmol/L (98-107); CREATININE 1.22 mg/dL (0.55-1.02); POTASSIUM 4.5 mmol/L (3.5-5.1); SGOT/AST 101 IU/L (3-35); SGPT/ALT 80 U/L (12-78); SODIUM 139 mmol/L (136-145); TOTAL PROTEIN 6.3 gm/dL (6.4-8.2)
[2020-04-23 03:41] LABS: TROPONIN I < 0.015 ng/ml (<0.045)
--- NOTE | 2020-04-23 04:04 | NUR ---
PT RESTING IN BED. CALL LIGHT WITHIN REACH. IN NO ACUTE DISTRESS
--- NOTE | 2020-04-23 04:35 | NUR ---
PTS LEFT CONTACT NUMBER AT [phone]. HUSBANDS NAME IS KATIA
--- NOTE | 2020-04-23 05:00 | NUR ---
A 69, admitted to 5E, under the services of DIVYA Alexander DO with a diagnosis of CHF. Chief complaint is SHORTNESS OF BREATH. Patient arrived via stretcher from ER. Monitor applied. Initial assessment completed. Vital signs taken and recorded. DIVYA ALEXANDER DO notified of admission to the unit. Orders received. See assessment for past medical history, medications and allergies. Patient and/or family oriented to unit. [facility] visitation policy reviewed. Clothing/patient valuable form completed. TERI MORRIS
[2020-04-23] MEDS ORDERED: LASIX40 MG PO (05:14)
[2020-04-23] MEDS ORDERED: LASIX20 MG PO (05:16)
[2020-04-23] MEDS ORDERED: ZESTRIL2.5 MG PO (05:18)
[2020-04-23] MEDS ORDERED: KAPSPARGO SPRIN25 MG PO (05:19)
[2020-04-23] MEDS ORDERED: ALDACTONE25 MG PO (05:20)
--- NOTE | 2020-04-23 05:23 | NUR ---
MED REC UP TO DATE PER PT RECALL. PT STATES SHE ALTERNATES TAKING 20 MG LASIX & 40 MG LASIX EVERY OTHER DAY. PT TOOK 40 MG YESTERDAY (04/22/20) AND THE DAY BEFORE (04/21/20).
--- NOTE | 2020-04-23 05:27 | NUR ---
NOTIFIED OF PT ARRIVAL ON FLOOR & MED REC UP TO DATE. ALSO AWARE OF PT'S C/O PAIN IN R SHOULDER/NECK AREA. NEW ORDERS TO FOLLOW.
--- NOTE | 2020-04-23 05:54 | NUR ---
'S ANSWERING SERVICE CALLED REGARDING CONSULT. INFORMATION & CALL BACK NUMBER LEFT WITH IDE[employer] MAN.
--- NOTE | 2020-04-23 08:35 | NUR ---
IN TO SEE PATIENT REGARDING PLAN OF CARE.
--- NOTE | 2020-04-23 10:32 | NUR ---
PT REQUESTED AND RECEIVED PO NORCO PER PRN ORDER FOR C/O RIGHT SHOULDER PAIN. RATES PAIN 05/30. WILL MONITOR EFFECTIVENESS. CALL LIGHT WITHIN REACH.
--- NOTE | 2020-04-23 11:32 | NUR ---
NORCO NOT EFFECTIVE PER PT. WILL CONTINUE TO MONITOR. PT DENIED PRN MORPHINE AT THIS TIME.
--- NOTE | 2020-04-23 11:46 | NUR ---
PT MEDICATED WITH IV MORPHINE PER PRN ORDER FOR C/O RIGHT SHOULDER PAIN. RATES PAIN 06/30. WILL MONITOR EFFECTIVENESS.
--- NOTE | 2020-04-23 12:46 | NUR ---
MORPHINE EFFECTIVE PER PT. WILL CONTINUE TO MONITOR.
--- NOTE | 2020-04-23 14:00 | NUR ---
PATIENT RESTING COMFORTABLY AT THIS TIME. NO VOICED COMPLAINTS. WILL CONTINUE TO MONITOR. CALL LIGHT WITHIN REACH.
--- NOTE | 2020-04-23 18:10 | NUR ---
PATIENT EATING DINNER. NO DISTRESS NOTED. RESPIRATIONS EASY, REGULAR. NO VOICED COMPLAINTS. WILL CONTINUE TO MONITOR.
--- NOTE | 2020-04-23 20:30 | NUR ---
RESTING IN BED WITH NO DISTRESS NOTED. RESPIRATIONS EASY. LUNGS DIMINISHED WITH RALES. PULSE OX 98% RA. CALL LIGHT WITHIN REACH. NO VOICED COMPLAINTS
[2020-04-24] VITALS: BP 98/62
--- NOTE | 2020-04-24 | NUR ---
SLEEPING. NO DISTRESS NOTED. RESPIRATIONS EASY. VSS. CALL LIGHT WITHIN REACH
--- NOTE | 2020-04-24 01:51 | NUR ---
24 HR chart check completed.
--- NOTE | 2020-04-24 06:00 | NUR ---
SLEPT THROUGHOUT NIGHT WITH NO DISTRESS NOTED. RESPIRATIONS EASY. CALL LIGHT WITHIN REACH. NO VOICED COMPLAINTS
[2020-04-24 06:22] LABS: BASO % 0.5 % (0.0-1.0); EOS # 0.2 10*3/uL (0.0-0.4); EOS % 2.9 % (1.0-4.0); LYMPH # 1.6 10*3/uL (1.3-4.4); LYMPH % 19.7 % (27.0-41.0); MEAN CELL VOLUME 97.2 fl (81.0-99.0); MEAN CORPUSCULAR HGB 32.2 pg (27.0-31.0); MEAN CORPUSCULAR HGB CONC 33.1 g/dl (33.0-37.0); MEAN PLATELET VOLUME 9.6 fl (9.6-12.3); MONO # 0.7 10*3/uL (0.1-1.0); MONO % 9.2 % (3.0-9.0); NEUT # 5.3 10*3/uL (2.3-7.9); NEUT % 67.3 % (47.0-73.0); PLATELET COUNT AUTOMATED 168 10*3/uL (130-400); RED BLOOD COUNT 4.32 10*6/uL (4.10-5.10); RED CELL DISTRI WIDTH 13.2 % (0-14.5); WHITE BLOOD COUNT 7.9 10*3/uL (4.8-10.8)
[2020-04-24 06:50] LABS: BUN 29 mg/dl (7-24); CHLORIDE 102 mmol/L (98-107); CHOLESTEROL 158 mg/dL (<200); CREATININE 1.03 mg/dL (0.55-1.02); HDL CHOLESTEROL 49 mg/dl (40-60); LDL CHOLESTEROL 70 mg/dL (9-159); POTASSIUM 4.4 mmol/L (3.5-5.1); SODIUM 136 mmol/L (136-145); TRIGLYCERIDES 197 mg/dl (<150); VLDL CHOLESTEROL 39 mg/dL (6-40)
[2020-04-24 08:00] VITALS: BP 103/56
[2020-04-24 08:00] LABS: VITAMIN D, 25-HYDROXY 25.3 ng/mL (30-100)
--- NOTE | 2020-04-24 08:00 | NUR ---
PATIENT SITTING UP IN BED. NO DISTRESS NOTED. RESPIRATIONS EASY, REGULAR ON RA. LUNGS DIMINISHED WITH PB RALES NOTED. PT DENIES ANY RIGHT SHOULDER PAIN AT THIS TIME. IVONE CONTINUE TO MONITOR. CALL LIGHT WITHIN REACH.
--- NOTE | 2020-04-24 08:30 | NUR ---
Certifed Refrigeration Operator in to talk to patient. Patient states lives at home with her . There are 4 steps in the home. Physician: Tuyet Sims [facility]: [facility] health services: none Patient's level of ADLs: INDEPENDENT Patient has working utilities: yes DME: none Follow-up physician's appointment after d/c: will be made by the hospitalist nurse director upon discharge Does patient want to access PORTAL?: no Discharge plan discussed with patient. She lives at home with her . She is independent in her ADLs and ambulation. Discussed home health care services and she denies any home needs at this time. When medically stable she will be discharged to home. She states her will provide transportation on discharge. CONSTANTIN PARADA
--- NOTE | 2020-04-24 09:39 | NUR ---
IN TO SEE PATIENT.
[2020-04-24 12:00] VITALS: BP 91/56
[2020-04-24 12:17] VITALS: BP 96/60
--- NOTE | 2020-04-24 12:21 | NUR ---
PT WATCHING TV. NO VOICED COMPLAINTS. WILL CONTINUE TO MONITOR. CALL LIGHT WITHIN REACH.
[2020-04-24] MEDS ORDERED: LASIX40 MG PO (12:41)
--- NOTE | 2020-04-24 13:32 | NUR ---
Discharge instructions reviewed with patient/family. Patient receptive and verbalizes understanding. Follow-up care arranged. Written instructions given to patient/family. SARA COLLINS.
[2020-04-25 08:08] LABS: HEP B CORE AB, IGM Negative (Negative); HEPATITIS B SURFACE AG Negative (Negative); HEPATITIS C VIRUS ANTIBODY <0.1 s/co (0.0-0.9)
== END 2020-04-24 13:32 | disposition home or self-care (01) | DRG 291 ==
LOC: ED 03:00 → EDHOLD 04:30 → 5E 04:30
PROVIDERS: Emergency Medicine; Family Medicine; Internal Medicine; ADMIT Internal Medicine
DX: I50.23 Acute on chronic systolic (congestive) heart failure (principal); N17.0 Acute kidney failure with tubular necrosis; E44.0 Moderate protein-calorie malnutrition; I38 Endocarditis, valve unspecified; R74.0 Nonspecific elevation of levels of transaminase and lactic acid dehydrogenase [LDH]; E03.9 Hypothyroidism, unspecified; E78.5 Hyperlipidemia, unspecified; E55.9 Vitamin D deficiency, unspecified; R73.9 Hyperglycemia, unspecified; G25.81 Restless legs syndrome; F41.9 Anxiety disorder, unspecified; Z95.810 Presence of automatic (implantable) cardiac defibrillator; Z82.49 Family history of ischemic heart disease and other diseases of the circulatory system; Z83.3 Family history of diabetes mellitus; Z80.3 Family history of malignant neoplasm of breast; Z80.0 Family history of malignant neoplasm of digestive organs; Z80.8 Family history of malignant neoplasm of other organs or systems; Z79.899 Other long term (current) drug therapy; Z90.710 Acquired absence of both cervix and uterus; Z68.25 Body mass index [BMI] 25.0-25.9, adult

== ENCOUNTER 2020-06-05 09:20 | Inpatient (IN) | payer MEDICARE, OTHER ==
[~2020-06-05] VITALS: Ht 160 cm; Wt 62.7 kg
[~2020-06-05 09:20] MED LIST changes: +KAPSPARGO SPRIN25 MG PO; +LASIX20 MG PO; +LASIX40 MG PO; +ZESTRIL2.5 MG PO
[2020-06-05 09:22] VITALS: BP 150/107
[2020-06-05 09:53] LABS: BASO % 0.5 % (0.0-1.0); EOS # 0.2 10*3/uL (0.0-0.4); EOS % 2.5 % (1.0-4.0); LYMPH # 1.1 10*3/uL (1.3-4.4); MEAN CELL VOLUME 99.3 fl (81.0-99.0); MEAN CORPUSCULAR HGB 32.3 pg (27.0-31.0); MEAN CORPUSCULAR HGB CONC 32.5 g/dl (33.0-37.0); MEAN PLATELET VOLUME 9.3 fl (9.6-12.3); MONO # 0.8 10*3/uL (0.1-1.0); MONO % 10.3 % (3.0-9.0); NEUT # 5.9 10*3/uL (2.3-7.9); NEUT % 72.3 % (47.0-73.0); PLATELET COUNT AUTOMATED 188 10*3/uL (130-400); RED BLOOD COUNT 4.43 10*6/uL (4.10-5.10); RED CELL DISTRI WIDTH 13.3 % (0-14.5); WHITE BLOOD COUNT 8.1 10*3/uL (4.8-10.8)
[2020-06-05 10:04] LABS: ACT PARTIAL THROMBO TIME 24.6 SECONDS (20.0-32.1)
[2020-06-05 10:10] LABS: ALBUMIN 2.9 gm/dl (3.1-4.5); CREATININE 1.34 mg/dL (0.55-1.02); POTASSIUM 3.6 mmol/L (3.5-5.1); TOTAL PROTEIN 6.3 gm/dL (6.4-8.2); TROPONIN I 0.021 ng/ml (<0.045)
[2020-06-05 11:51] VITALS: BP 124/91
--- NOTE | 2020-06-05 13:59 | NUR ---
PT IS RESTING IN ROOM NO SIGNS OF ACUTE DISTRESS NOTED.
--- NOTE | 2020-06-05 15:20 | NUR ---
A 69, admitted to 5E, under the services of THIEN Jean DO with a diagnosis of ACUTE HEART FAILURE. Chief complaint is CHEST PAIN. Patient arrived via ambulatory from ER. Monitor applied. Initial assessment completed. Vital signs taken and recorded. THIEN JEAN DO notified of admission to the unit. Orders received. See assessment for past medical history, medications and allergies. Patient and/or family oriented to unit. [facility] visitation policy reviewed. Clothing/patient valuable form completed. MARCEL LANDIN
--- NOTE | 2020-06-05 15:54 | NUR ---
DR. RIVERA'S OFFICE NOTIFIED OF CONSULT.
[2020-06-05 16:00] VITALS: BP 124/68
--- NOTE | 2020-06-05 17:06 | NUR ---
PT REFUSED TOPROL XL. DR. RIVERA NOTIFIED. NO NEW ORDERS.
[2020-06-05 20:00] VITALS: BP 115/66
--- NOTE | 2020-06-05 20:08 | NUR ---
WENT IN TO GIVE PATIENT'S 8PM MEDICATION AND SHE REQUESTED THAT SHE HAVE ALL OF HER 10PM MEDS WITH IT. WILL PULL AND ADMINSTER ALL MEDS PER PATIENT REQUEST.
[2020-06-06] VITALS: BP 118/78
--- NOTE | 2020-06-06 00:57 | NUR ---
24 HR chart check completed.
--- NOTE | 2020-06-06 05:56 | NUR ---
PATIENT SLEPT THROUGH NIGHT. NO VOICED COMPLAINTS. NO SIGNS OF DISCOMFORT OR DISTRESS NOTED. WILL CONTINUE TO MONITOR.
[2020-06-06 06:35] LABS: BASO % 0.4 % (0.0-1.0); EOS # 0.3 10*3/uL (0.0-0.4); EOS % 3.6 % (1.0-4.0); HEMATOCRIT 41.2 % (37.0-47.0); LYMPH # 1.7 10*3/uL (1.3-4.4); LYMPH % 21.2 % (27.0-41.0); MEAN CORPUSCULAR HGB 32.5 pg (27.0-31.0); MEAN CORPUSCULAR HGB CONC 32.8 g/dl (33.0-37.0); MEAN PLATELET VOLUME 9.9 fl (9.6-12.3); MONO # 0.8 10*3/uL (0.1-1.0); NEUT % 64.4 % (47.0-73.0); PLATELET COUNT AUTOMATED 176 10*3/uL (130-400); RED BLOOD COUNT 4.16 10*6/uL (4.10-5.10); RED CELL DISTRI WIDTH 13.8 % (0-14.5); WHITE BLOOD COUNT 7.8 10*3/uL (4.8-10.8)
[2020-06-06 07:11] LABS: ALBUMIN 2.7 gm/dl (3.1-4.5); CHLORIDE 106 mmol/L (98-107); POTASSIUM 3.7 mmol/L (3.5-5.1); SODIUM 138 mmol/L (136-145)
[2020-06-06 07:20] LABS: ALKALINE PHOSPHATASE 105 U/L (45-117); BUN 23 mg/dl (7-24); CREATININE 0.99 mg/dL (0.55-1.02); SGOT/AST 49 IU/L (3-35); SGPT/ALT 65 U/L (12-78); TOTAL PROTEIN 5.7 gm/dL (6.4-8.2)
--- NOTE | 2020-06-06 09:13 | NUR ---
Pt refused lovenox, ultram and toprol. Pt states she takes ultram prn and does not need it. Educated on lovenox and toprol. Pt states she is aware of what the medications are for. Pt states she used to take toprol and did not like the way it made her feel. States it makes her feel groggy. I offered to changed med to night time but pt states that is when she took it prior and it still made her feel that way. States she knows it is a beta armida and it is used to control her heart rate but she doesnt want to take it.
[2020-06-06] MEDS ORDERED: BUMETANIDE1 MG PO (10:54)
[2020-06-06] MEDS ORDERED: LOPRESSOR25 MG PO (10:55)
--- NOTE | 2020-06-06 11:15 | NUR ---
Discharge instructions reviewed with patient. Patient receptive and verbalizes understanding. Follow-up care arranged. Written instructions given to patient. DENNIS CROW
--- NOTE | 2020-06-06 11:47 | NUR ---
Pt dc via wheelchair to main lobby. States she is going to wait there for her to pick her up.
--- NOTE | 2020-06-06 13:19 | NUR ---
Moss Bleacher in to talk to patient. Patient states lives at HOME with . There are FEW steps in the home. Physician: LEONEL TYLER Pharmacy: [facility] [place] health services: NONE Patient's level of ADLs: INDEPENDENT Patient has working utilities: YES DME: NONE Follow-up physician's appointment after d/c: WILL BE MADE BY HOSPITALIST NURSE DIRECTOR ON DISCHARGE Does patient want to access PORTAL?: NO Discharge plan PT LIVES AT HOME WITH HER AND IS INDEPENDENT IN HIS CARE. DENIES ANY NEEDS ON DISCHARGE. PLANS TO RETURN HOME WHEN MEDICALLY STABLE. WILL CONTINUE TO FOLLOW. STATES SHE WILL HAVE A RIDE HOME.. NARESH SAUNDERS
== END 2020-06-06 13:19 | disposition home or self-care (01) | DRG 291 ==
LOC: ED 09:20 → EDHOLD 10:35 → 5E 10:35
PROVIDERS: Emergency Medicine; Internal Medicine; ADMIT Student in an Organized Health Care Education/Training Program
DX: I13.0 Hypertensive heart and chronic kidney disease with heart failure and stage 1 through stage 4 chronic kidney disease, or unspecified chronic kidney disease (principal); N17.0 Acute kidney failure with tubular necrosis; I50.23 Acute on chronic systolic (congestive) heart failure; E44.0 Moderate protein-calorie malnutrition; I38 Endocarditis, valve unspecified; D72.810 Lymphocytopenia; R73.9 Hyperglycemia, unspecified; F41.9 Anxiety disorder, unspecified; E03.9 Hypothyroidism, unspecified; G25.81 Restless legs syndrome; E78.5 Hyperlipidemia, unspecified; N18.9 Chronic kidney disease, unspecified; R74.0 Nonspecific elevation of levels of transaminase and lactic acid dehydrogenase [LDH]; R00.0 Tachycardia, unspecified; Z91.14 Patient's other noncompliance with medication regimen; Z95.810 Presence of automatic (implantable) cardiac defibrillator; Z90.710 Acquired absence of both cervix and uterus; Z82.49 Family history of ischemic heart disease and other diseases of the circulatory system; Z83.3 Family history of diabetes mellitus; Z80.3 Family history of malignant neoplasm of breast; Z80.0 Family history of malignant neoplasm of digestive organs; Z79.899 Other long term (current) drug therapy; Z68.24 Body mass index [BMI] 24.0-24.9, adult

== ENCOUNTER 2020-11-08 18:54 | Observation (INO) | payer MEDICARE, OTHER ==
[~2020-11-08] VITALS: Ht 160 cm; Wt 60.0 kg
[~2020-11-08 18:54] MED LIST changes: +BUMETANIDE1 MG PO; +LOPRESSOR25 MG PO
[2020-11-08 19:00] VITALS: BP 102/75
[2020-11-08 19:18] VITALS: BP 116/51
[2020-11-08 20:20] LABS: HEMATOCRIT 38.8 % (37.0-47.0); MEAN CELL VOLUME 99.2 fl (81.0-99.0); MEAN CORPUSCULAR HGB 32.2 pg (27.0-31.0); MEAN CORPUSCULAR HGB CONC 32.5 g/dl (33.0-37.0); PLATELET COUNT AUTOMATED 140 10*3/uL (130-400); RED BLOOD COUNT 3.91 10*6/uL (4.10-5.10); RED CELL DISTRI WIDTH 13.3 % (0-14.5); WHITE BLOOD COUNT 8.2 10*3/uL (4.8-10.8)
[2020-11-08 20:28] VITALS: BP 120/67
[2020-11-08 20:31] LABS: ACT PARTIAL THROMBO TIME 26.4 SECONDS (20.0-32.1)
[2020-11-08 20:37] LABS: ALBUMIN 2.8 gm/dl (3.1-4.5); ALKALINE PHOSPHATASE 156 U/L (45-117); BUN 26 mg/dl (7-24); CHLORIDE 106 mmol/L (98-107); CREATININE 1.17 mg/dL (0.55-1.02); POTASSIUM 4.1 mmol/L (3.5-5.1); SGOT/AST 59 IU/L (3-35); SGPT/ALT 57 U/L (12-78); SODIUM 138 mmol/L (136-145)
[2020-11-08 20:39] LABS: TROPONIN I < 0.015 ng/ml (<0.045)
[2020-11-08 20:43] LABS: BASOPHILS 1 % (0-1); TOTAL CELLS COUNTED 100 #CELLS
[2020-11-08 20:44] LABS: PLATELET SUFFICIENCY NORMAL (NORMAL)
--- NOTE | 2020-11-08 21:46 | NUR ---
REPORT ACCEPTED FROM [facility].
--- NOTE | 2020-11-08 22:03 | NUR ---
PATIENT BEING TAKEN TO CT VIA WHEELCHAIR.
--- NOTE | 2020-11-08 22:11 | NUR ---
PATIENT HAS RETURNED FROM CT.
[2020-11-08 22:17] VITALS: BP 106/70
[2020-11-09 00:15] VITALS: BP 106/65
--- NOTE | 2020-11-09 00:15 | NUR ---
PATIENT UP AND TO RESTROOM.
[2020-11-09 00:50] VITALS: BP 112/68
--- NOTE | 2020-11-09 00:50 | NUR ---
A 70, admitted to , under the services of THIEN Mercedes DO with a diagnosis of CHF. Chief complaint is CHF. Patient arrived via bed from ER. Monitor applied. Initial assessment completed. Vital signs taken and recorded. THIEN MERCEDES DO notified of admission to the unit. Orders received. See assessment for past medical history, medications and allergies. Patient and/or family oriented to unit. [facility] visitation policy reviewed. Clothing/patient valuable form completed. YANELI CANALES
--- NOTE | 2020-11-09 01:15 | NUR ---
DR SHIELDS NOTIFIED THAT PT MED REC IS UP TO DATE.
[2020-11-09 01:51] LABS: BASO # 0.1 10*3/uL (0.0-0.1); BASO % 0.5 % (0.0-1.0); EOS # 1.8 10*3/uL (0.0-0.4); EOS % 17.5 % (1.0-4.0); HEMATOCRIT 42.4 % (37.0-47.0); LYMPH # 1.4 10*3/uL (1.3-4.4); LYMPH % 13.9 % (27.0-41.0); MEAN CELL VOLUME 98.4 fl (81.0-99.0); MEAN CORPUSCULAR HGB 31.6 pg (27.0-31.0); MEAN CORPUSCULAR HGB CONC 32.1 g/dl (33.0-37.0); MONO # 0.7 10*3/uL (0.1-1.0); MONO % 6.9 % (3.0-9.0); NEUT # 6.2 10*3/uL (2.3-7.9); NEUT % 60.9 % (47.0-73.0); PLATELET COUNT AUTOMATED 155 10*3/uL (130-400); RED BLOOD COUNT 4.31 10*6/uL (4.10-5.10); RED CELL DISTRI WIDTH 13.2 % (0-14.5); WHITE BLOOD COUNT 10.1 10*3/uL (4.8-10.8)
[2020-11-09 02:06] LABS: ALBUMIN 3.1 gm/dl (3.1-4.5); CREATININE 1.13 mg/dL (0.55-1.02); POTASSIUM 3.4 mmol/L (3.5-5.1); TOTAL PROTEIN 6.7 gm/dL (6.4-8.2)
[2020-11-09 02:08] LABS: FREE T4 1.28 ng/dl (0.76-1.46)
[2020-11-09 02:12] LABS: THYROID STIM HORMONE (HS) 1.05 uIU/ml (0.358-4.75)
--- NOTE | 2020-11-09 02:30 | NUR ---
DR RIVERA ANSWERING SERVICE NOTIFIED OF CONSULT.
[2020-11-09 08:00] VITALS: BP 103/61
[2020-11-09 12:00] VITALS: BP 102/60
[2020-11-09] MEDS ORDERED: FUROSEMIDE40 MG PO (13:12)
[2020-11-09] MEDS ORDERED: METOPROLOL SUCC25 M2 PO (13:12)
--- NOTE | 2020-11-09 13:50 | NUR ---
PT CALLED OUT STATING SHE COULD NOT BREATH. VITALS WERE TAKEN AND OXYGEN WAS PLACED ON PATIENT. PT STATED THAT SHE HAD SHARP RIGHT SHOULDER PAIN BUT DENIES CHEST PAIN OR ANYTHING PAIN RADIATING DOWN THE ARM. DR. HUGHES WAS CALLED AND CTA OF THE CHEST WAS ORDERED. DR. FLORES WAS ALSO CALLED AND NOTIFIED. STATED HE WOULD BE UP TO SEE THE PATIENT.
[2020-11-09 13:57] VITALS: BP 107/86
--- NOTE | 2020-11-09 14:44 | NUR ---
PT RETURNED FROM CTA AND IS RESTING COMFORTABLY IN BED WITH NON-LABORED BREATHING. WILL CONTINUE TO MONITOR PATIENT.
--- NOTE | 2020-11-09 16:51 | NUR ---
Discharge instructions reviewed with patient/family. Patient receptive and verbalizes understanding. Follow-up care arranged. Written instructions given to patient/family. MARICRUZ DOWNING
== END 2020-11-09 16:00 | disposition home or self-care (01) ==
LOC: ED 18:54 → EDHOLD 23:37 → 5E 11-09 00:36
PROVIDERS: Internal Medicine; Student in an Organized Health Care Education/Training Program; ADMIT Family Medicine; ATTEND Family Medicine
DX: I11.0 Hypertensive heart disease with heart failure (principal); I50.43 Acute on chronic combined systolic (congestive) and diastolic (congestive) heart failure; F41.9 Anxiety disorder, unspecified; E03.9 Hypothyroidism, unspecified; R00.1 Bradycardia, unspecified; R00.0 Tachycardia, unspecified; R73.9 Hyperglycemia, unspecified; R06.02 Shortness of breath; R74.01 Elevation of levels of liver transaminase levels; D72.19 Other eosinophilia; D72.810 Lymphocytopenia; G25.81 Restless legs syndrome; E78.5 Hyperlipidemia, unspecified; E44.0 Moderate protein-calorie malnutrition; Z90.710 Acquired absence of both cervix and uterus; Z20.828 Contact with and (suspected) exposure to other viral communicable diseases; Z95.810 Presence of automatic (implantable) cardiac defibrillator; Z98.890 Other specified postprocedural states; Z91.14 Patient's other noncompliance with medication regimen

== ENCOUNTER → 2021-03-08 | Outpatient (CLI) | payer MEDICARE, OTHER ==
[~2021-03-08] MED LIST changes: +FUROSEMIDE40 MG PO
== END | disposition home or self-care (01) ==
LOC: RAD 13:48
PROVIDERS: ATTEND Nurse Practitioner Family
DX: M25.551 Pain in right hip (principal); M54.9 Dorsalgia, unspecified; R06.02 Shortness of breath

== ENCOUNTER 2021-09-16 20:15 | Emergency (ER) | payer MEDICARE, OTHER ==
[~2021-09-16] VITALS: Ht 162.5 cm; Wt 59.0 kg
[2021-09-16 21:06] LABS: BASO # 0.1 10*3/uL (0.0-0.1); EOS # 0.3 10*3/uL (0.0-0.4); EOS % 6.4 % (1.0-4.0); HEMATOCRIT 41.6 % (37.0-47.0); LYMPH # 1.4 10*3/uL (1.3-4.4); LYMPH % 26.6 % (27.0-41.0); MEAN CELL VOLUME 99.8 fl (81.0-99.0); MEAN CORPUSCULAR HGB 32.6 pg (27.0-31.0); MEAN CORPUSCULAR HGB CONC 32.7 g/dl (33.0-37.0); MEAN PLATELET VOLUME 8.6 fl (9.6-12.3); MONO # 0.6 10*3/uL (0.1-1.0); MONO % 11.5 % (3.0-9.0); NEUT # 2.8 10*3/uL (2.3-7.9); NEUT % 53.9 % (47.0-73.0); PLATELET COUNT AUTOMATED 185 10*3/uL (130-400); RED BLOOD COUNT 4.17 10*6/uL (4.10-5.10); RED CELL DISTRI WIDTH 12.7 % (0-14.5); WHITE BLOOD COUNT 5.1 10*3/uL (4.8-10.8)
[2021-09-16 21:25] LABS: ALBUMIN 3.1 gm/dl (3.1-4.5); ALKALINE PHOSPHATASE 87 U/L (45-117); BUN 26 mg/dl (7-24); CHLORIDE 104 mmol/L (98-107); CREATININE 1.67 mg/dL (0.55-1.02); SGOT/AST 23 IU/L (3-35); SGPT/ALT 30 U/L (12-78); SODIUM 139 mmol/L (136-145); TOTAL PROTEIN 6.5 gm/dL (6.4-8.2)
[2021-09-16 21:34] LABS: TROPONIN I < 0.015 ng/ml (<0.045)
== END 2021-09-17 00:44 | disposition home or self-care (01) ==
LOC: ED 20:15
PROVIDERS: Internal Medicine
DX: I95.1 Orthostatic hypotension (principal); N17.9 Acute kidney failure, unspecified; D75.89 Other specified diseases of blood and blood-forming organs

== ENCOUNTER 2022-03-02 07:27 | Emergency (ER) | payer MEDICARE, OTHER ==
[~2022-03-02] VITALS: Wt 58.1 kg
== END 2022-03-02 10:45 | disposition home or self-care (01) ==
LOC: ED 07:27
DX: M25.551 Pain in right hip (principal); M19.90 Unspecified osteoarthritis, unspecified site; Z98.890 Other specified postprocedural states; Z90.710 Acquired absence of both cervix and uterus

== ENCOUNTER → 2023-03-25 | Outpatient (CLI) | payer OTHER ==
[2023-03-25 10:16] LABS: BASO # 0.1 10*3/uL (0.0-0.1); BASO % 0.8 % (0.0-1.0); EOS # 0.4 10*3/uL (0.0-0.4); EOS % 4.9 % (1.0-4.0); HEMATOCRIT 43.2 % (37.0-47.0); LYMPH # 1.7 10*3/uL (1.3-4.4); LYMPH % 23.6 % (27.0-41.0); MEAN CELL VOLUME 93.9 fl (81.0-99.0); MEAN CORPUSCULAR HGB 31.5 pg (27.0-31.0); MEAN CORPUSCULAR HGB CONC 33.6 g/dl (33.0-37.0); MONO # 0.9 10*3/uL (0.1-1.0); MONO % 11.6 % (3.0-9.0); NEUT # 4.3 10*3/uL (2.3-7.9); NEUT % 58.4 % (47.0-73.0); PLATELET COUNT AUTOMATED 154 10*3/uL (130-400); RED CELL DISTRI WIDTH 12.4 % (0-14.5); WHITE BLOOD COUNT 7.3 10*3/uL (4.8-10.8)
[2023-03-25 10:55] LABS: FREE T4 0.94 ng/dl (0.89-1.76); POTASSIUM 3.4 mmol/L (3.4-5.1); THYROID STIM HORMONE (HS) 19.546 uIU/ml (0.550-4.780); TOTAL PROTEIN 7.3 gm/dL (6.0-8.0)
== END | disposition home or self-care (01) ==
LOC: LAB 09:33
PROVIDERS: ATTEND Nurse Practitioner Family
DX: E03.9 Hypothyroidism, unspecified (principal); R53.83 Other fatigue

== ENCOUNTER → 2023-05-30 | Outpatient (CLI) | payer OTHER ==
[2023-05-30 14:18] LABS: HEMATOCRIT 39.6 % (37.0-47.0)
[2023-05-30 14:19] LABS: BILIRUBIN Negative (Negative); BLOOD Negative (Negative); CLARITY Clear (Clear); COLOR Yellow (Yellow); GLUCOSE Negative (Negative); KETONE Negative (Negative); LEUKO ESTERASE Negative (Negative); NITRITE Negative (Negative); PH 5.5 (4.5-8.0); SPECIFIC GRAVITY 1.015 (1.001-1.030); UROBILINOGEN 0.2 E.U./dl (0.0-1.0)
[2023-05-30 14:30] LABS: BACTERIA 1+
[2023-05-30 14:43] LABS: POTASSIUM 4.2 mmol/L (3.4-5.1)
[2023-05-30 16:21] LABS: URINE CREATININE RANDOM 97.48 mg/dL
== END | disposition home or self-care (01) ==
LOC: LAB 13:54 → US 14:30
PROVIDERS: ATTEND Internal Medicine
DX: I12.9 Hypertensive chronic kidney disease with stage 1 through stage 4 chronic kidney disease, or unspecified chronic kidney disease (principal); N18.9 Chronic kidney disease, unspecified; D63.1 Anemia in chronic kidney disease; N25.81 Secondary hyperparathyroidism of renal origin; E55.9 Vitamin D deficiency, unspecified; N28.1 Cyst of kidney, acquired; R16.1 Splenomegaly, not elsewhere classified